=== PATIENT | female | born 1985 | race Asian ===

== ENCOUNTER 2018-12-22 22:20 | Emergency (ER) | payer MEDICAID ==
[~2018-12-22] VITALS: Ht 170.2 cm; Wt 61.2 kg
[~2018-12-22 22:20] MED LIST: DEPAKOTE250 MG PO; TRAZODONE HCL150 MG ORAL
--- NOTE | 2018-12-22 22:20 | NUR ---
ED Nurse Note: @ 1425 Pt was BIBA from home, Pt's friend called 911 due Pt C/o suicide idear which wanted to "stab herself". According to EMS report, pt was run out of Meds/Trazadone which she took regulary, and pt had Hx of OLY Kaminski. Pt is A/O X 4. [employer] at bedside. Pt's both hands were on cuff with 51:50 on hold. Hr 120 at this time, will continue to monitor.
--- NOTE | 2018-12-22 22:31 | Emergency Room Report ---
History of Present Illness General Chief Complaint: Behavioral Complaint Source: Patient, EMS Present Illness HPI [employer] were called by her roommate. Apparently the patient has a history of bipolar disorders not been taking her medication for several days. She apparently had suicidal ideation although the plan is not clear. [employer] started to transport the patient however she started to get agitated and [place] [facility] was called. Patient was transported to us. [employer] is planning on placing the patient on 5150. The patient denies any physical pain but says that she has psychiatric pain and does not want to live. She says she is homeless at this time. She claims she' s hearing voices and it's difficult for her to think clearly. She claims that the medications he supposed be taking her Depakote and trazodone. She also says that she is on metformin and Tragenta. She has been admitted to several hospitals for psychiatric evaluation and treatment. She denies headache, fever, nausea, vomiting, diarrhea, dysuria, joint pain. The patient Facial hair and there is slight inflammation in that area. The patient is genetically a male. Allergies: Coded Allergies: No Known Allergies (Unverified , 12/22/18) Patient History Past Medical History: see triage record Social History: Reports: smoking, alcohol use, drug use - [facility] Social History Narrative with roommate Last Menstrual Period: n/a Reviewed Nursing Documentation: PMH: Agreed; PSxH: Agreed Nursing Documentation-PM Past Medical History: No History, Except For Review of Systems All Other Systems: negative except mentioned in HPI Physical Exam Vital Signs Date Time Temp Pulse Resp B/P (MAP) Pulse Ox O2 Delivery O2 Flow Rate FiO2 12/22/18 22:13 98.2 120 18 127/82 100 Room Air Sp02 EP Interpretation: reviewed, normal General Appearance: well appearing, no apparent distress, other - GCS 14 Head: normocephalic Eyes: bilateral eye normal inspection, bilateral eye PERRL, bilateral eye EOMI ENT: moist mucus membranes Neck: supple Respiratory: lungs clear, normal breath sounds Cardiovascular #1: regular rate, rhythm Cardiovascular #2: 2+ radial (R) Gastrointestinal: normal inspection, normal bowel sounds, non tender, no mass, non-distended, scaphoid Genitourinary: other - penis Musculoskeletal: back normal, gait/station normal, normal range of motion Neurologic: alert, oriented x3, call center representative III-XII nml as tested, motor strength/tone normal, DTRs symmetric, sensory intact, cerebellar normal, speech normal Psychiatric: anxious, other - delusions and difficulty forumlating thoughts Suicide Risk Assessment: Suicidal Ideation: Yes Had intent to initiate attempt: Yes Skin: normal inspection, warm/dry, other - follicular rash mustach area Medical Decision Making Diagnostic Impression: Primary Impression: Suicidal ideation Additional Impressions: Psychosis Qualified Codes: F25.0 - Schizoaffective disorder, bipolar type Hyperglycemia Noncompliance ER Course Patient presents with alleged suicidal ideation and disorganized thoughts with a history of bipolar disorder and noncompliance. Differential includes exacerbation of bipolar disorder, noncompliance, electrolyte imbalance, other drug ingestions amongst other. The patient is a nonfocal neurologic exam at this time and CT of the head is not indicated. However the patient will be evaluated with EKG, and labs. The patient will be treated with Ativan, Benadryl and trazodone Labs with elevated glucose. Tox and alcohol negative. Treated for hyperglycemia. Improved with treatment. Patient had adverse reaction to Latuda in the past. Patient medically clear for psychiatric evaluation and treatment. More purposeful. C/O chronic R lower back pain. Requested Motrin (ordered). Declines nicotine patch. Signed out to Dr. Aldana. Laboratory Tests Test 12/22/18 22:55 White Blood Count 9.2 K/UL (4.8-10.8) Red Blood Count 5.19 M/UL (4.20-5.40) Hemoglobin 15.3 G/DL (12.0-16.0) Hematocrit 43.9 % (37.0-47.0) Mean Corpuscular Volume 85 FL (80-99) Mean Corpuscular Hemoglobin 29.6 PG (27.0-31.0) Mean Corpuscular Hemoglobin Concent 34.9 G/DL (32.0-36.0) Red Cell Distribution Width 11.0 % (11.6-14.8) L Platelet Count 257 K/UL (150-450) Mean Platelet Volume 7.2 FL (6.5-10.1) Neutrophils (%) (Auto) 74.2 % (45.0-75.0) Lymphocytes (%) (Auto) 16.3 % (20.0-45.0) L Monocytes (%) (Auto) 7.2 % (1.0-10.0) Eosinophils (%) (Auto) 1.0 % (0.0-3.0) Basophils (%) (Auto) 1.2 % (0.0-2.0) Urine Color Pale yellow Urine Appearance Clear Urine pH 6.5 (4.5-8.0) Urine Specific [place] 1.010 (1.005-1.035) Urine Protein Negative (NEGATIVE) Urine Glucose (UA) 4+ (NEGATIVE) H Urine Ketones Negative (NEGATIVE) Urine Blood Negative (NEGATIVE) Urine Nitrite Negative (NEGATIVE) Urine Bilirubin Negative (NEGATIVE) Urine Urobilinogen Normal MG/DL (0.0-1.0) Urine Leukocyte Esterase Negative (NEGATIVE) Sodium Level 134 MMOL/L (136-145) L Potassium Level 4.4 MMOL/L (3.5-5.1) Chloride Level 98 MMOL/L (98-107) Carbon Dioxide Level 25 MMOL/L (21-32) Anion Gap 11 mmol/L (5-15) Blood Urea Nitrogen 7 mg/dL (7-18) Creatinine 1.0 MG/DL (0.55-1.30) Estimate Glomerular Filtration Rate > 60 mL/min (>60) Glucose Level 317 MG/DL (74-106) H Calcium Level 9.4 MG/DL (8.5-10.1) Total Bilirubin 0.4 MG/DL (0.2-1.0) Aspartate Amino Transferase (AST) 17 U/L (15-37) Alanine Aminotransferase (ALT) 15 U/L (12-78) Alkaline Phosphatase 64 U/L (46-116) Total Creatine Kinase 105 U/L (26-308) Total Protein 7.6 G/DL (6.4-8.2) Albumin 3.8 G/DL (3.4-5.0) Globulin 3.8 g/dL Albumin/Globulin Ratio 1.0 (1.0-2.7) Thyroid Stimulating Hormone (TSH) 2.015 uiU/mL (0.358-3.740) Salicylates Level 0.3 ug/mL (2.8-20) L Urine Opiates Screen Negative (NEGATIVE) Acetaminophen Level < 2 MCG/ML (10-30) L Urine Barbiturates Screen Negative (NEGATIVE) Valproic Acid Level 4 MCG/ML (50-100) L Phencyclidine (PCP) Screen Negative (NEGATIVE) Urine Amphetamines Screen Negative (NEGATIVE) Urine Benzodiazepines Screen Negative (NEGATIVE) Urine Cocaine Screen Negative (NEGATIVE) Urine Marijuana (THC) Screen Negative (NEGATIVE) Serum Alcohol < 3 mg/dL EKG Diagnostic Results Rate: tachycardiac Rhythm: NSR ST Segments: no acute changes Rhythm Strip Diag. Results EP Interpretation: yes Rhythm: no PVC's, no ectopy, other - ST Last Vital Signs Date Time Temp Pulse Resp B/P (MAP) Pulse Ox O2 Delivery O2 Flow Rate FiO2 12/23/18 16:36 98.2 82 18 128/78 100 Room Air Status: improved Disposition: XFER TO PSYCH HOSP/UNIT Condition: Stable Gerard Pisano MD Dec 22, 2018 22:31
--- NOTE | 2018-12-22 22:35 | NUR ---
ED Nurse Note: [facility], cashes and cards kept with security Box.
[2018-12-22] MEDS ORDERED: LORazepam Inj 2mg/ml 1ml IV ONE (22:45)
[2018-12-22] MEDS ORDERED: DiphenhydrAMINE 50mg/ml Inj IVP ONE (22:45)
[2018-12-22] MEDS ORDERED: TraZODone 50mg tab ORAL ONE (22:45)
--- NOTE | 2018-12-22 23:03 | NUR ---
ED Nurse Note: Meds given as ordered.
[2018-12-22 23:07] LABS: APPEARANCE,URINE CLEAR; BASOPHILS % (AUTO) 1.2 % (0.0-2.0); BILIRUBIN, URINE NEGATIVE (NEGATIVE); COLOR,URINE PALE YELLOW; GLUCOSE, URINE (UA) 4+ (NEGATIVE); HEMATOCRIT 43.9 % (37.0-47.0); HEMOGLOBIN 15.3 G/DL (12.0-16.0); KETONES,URINE NEGATIVE (NEGATIVE); LEUKOCYTE ESTERASE ,URINE NEGATIVE (NEGATIVE); LYMPHOCYTES % (AUTO) 16.3 % (20.0-45.0); MEAN CORPUSCULAR VOLUME 85 FL (80-99); MONOCYTES % (AUTO) 7.2 % (1.0-10.0); NEUTROPHILS % (AUTO) 74.2 % (45.0-75.0); NITRITE,URINE NEGATIVE (NEGATIVE); PH,URINE 6.5 (4.5-8.0); PLATELET COUNT 257 K/UL (150-450); PROTEIN,URINE NEGATIVE (NEGATIVE); RED BLOOD COUNT 5.19 M/UL (4.20-5.40); UROBILINOGEN,URINE NORMAL MG/DL (0.0-1.0); WHITE BLOOD COUNT 9.2 K/UL (4.8-10.8)
[2018-12-22 23:14] VITALS: BP 123/81
--- NOTE | 2018-12-22 23:15 | NUR ---
Note dawna in EDM - 12/23/18 at 0030 by [facility] ED Nurse Note: Pt was BIBA from home, Pt's friend called 911 due Pt C/o suicide idear which wanted to "stab herself". According to EMS report, pt was run out of Meds/Trazadone which she took regulary, and pt had Hx of OLY Kaminski. Pt is A/O X 4. [employer] at bedside. Pt's both hands were on cuff with 51:50 on hold. Hr 120 at this time, will continue to monitor.
[2018-12-22 23:32] LABS: ALANINE AMINOTRANSFERASE 15 U/L (12-78); ALBUMIN 3.8 G/DL (3.4-5.0); ALKALINE PHOSPHATASE 64 U/L (46-116); ANION GAP 11 mmol/L (5-15); ASPARTATE AMINO TRANSFERASE 17 U/L (15-37); BILIRUBIN,TOTAL 0.4 MG/DL (0.2-1.0); CALCIUM 9.4 MG/DL (8.5-10.1); CARBON DIOXIDE 25 MMOL/L (21-32); CHLORIDE 98 MMOL/L (98-107); CREATINE KINASE 105 U/L (26-308); POTASSIUM 4.4 MMOL/L (3.5-5.1); SODIUM 134 MMOL/L (136-145)
[2018-12-22 23:38] LABS: BLOOD UREA NITROGEN 7 mg/dL (7-18)
[2018-12-23] VITALS (7 sets, daily range): BP systolic 118–128; BP diastolic 69–80
--- NOTE | 2018-12-23 00:30 | NUR ---
ED Nurse Note: Pt is lying quietly at this time, calling her sister : [phone]/ Lola.
[2018-12-23] MEDS ORDERED: Depakote 500mg tab ORAL ONE (01:00)
--- NOTE | 2018-12-23 04:15 | NUR ---
ED Nurse Note: Pt has a 1:1 sitter at bedside. Pt is awake, VSS. Pt was ambulated with steady gaite, will continue to monitor.
--- NOTE | 2018-12-23 05:35 | NUR ---
ED Nurse Note: Received a call from Den Brewer. No Beds today.
--- NOTE | 2018-12-23 07:10 | NUR ---
HAND-OFF: Report given to Shayan Jang/TERE. Pt is A/O X4. VSS. Sitter at bed side.
--- NOTE | 2018-12-23 07:35 | NUR ---
ED Nurse Note: Received patient in bed eating breakfast. pt aao x4 and in a pleasant mood at this moment. sitter at bedside. Vistal signs stable as documented. pt was asked "Do you still want to hurt yourself?" and replied "No. not now. I smoked weed and I was just being dramatic." no skin issue noted.
--- NOTE | 2018-12-23 07:43 | NUR ---
ED Nurse Note: pt's phone and portable patient partner were given to pt per her request. patient partner cord was not given due to risk for suicide. sitter at bedside. pt is walking in the room with steady gait.
[2018-12-23] MEDS ORDERED: metFORMIN 500mg tab ORAL SCH (09:00)
[2018-12-23] MEDS ORDERED: Depakote 500mg tab ORAL SCH (09:00)
--- NOTE | 2018-12-23 09:05 | NUR ---
ED Nurse Note: Pt has a visitor and keys from pt's belongings given to the visitor per pt's request.
--- NOTE | 2018-12-23 10:36 | NUR ---
ED Nurse Note: pt ambulated to bathroom and came back with steady gait assisted by sitter the whole time.
--- NOTE | 2018-12-23 13:06 | NUR ---
ED Nurse Note: pt requested to take [employer] debit card from security box to give it to her friend Julio so he can pay her rent. security box was opened and express debit card was handed in to Julio in front of 1 RN, 1 sitter, 1 security, Julio, and pt herself. Rest of items were checked in front of pt and placed in locker with her other stuff. pt agreed with it.
--- NOTE | 2018-12-23 15:57 | NUR ---
ED Nurse Note: Report given to Carmen at [facility].
--- NOTE | 2018-12-23 16:38 | NUR ---
ED Nurse Note: pt left department in stable condition.
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
== END 2018-12-23 16:36 ==
LOC: EDBD 22:20 → EMR 22:40
DX: R45.851 Suicidal ideations (principal); F29 Unspecified psychosis not due to a substance or known physiological condition; F31.9 Bipolar disorder, unspecified; R73.9 Hyperglycemia, unspecified; Z91.14 Patient's other noncompliance with medication regimen; F12.90 Cannabis use, unspecified, uncomplicated; F17.200 Nicotine dependence, unspecified, uncomplicated; Z72.89 Other problems related to lifestyle
CPT/HCPCS: 36415; 80053; 80164; 80307; 80329; 81003; 82550; 82962; 84443; 85025; 93005; 96361; 96374; 96375; 99285; J1200

== ENCOUNTER → 2019-03-31 | Emergency (ER) | payer MEDICAID, OTHER ==
[~2019-03-31] VITALS: Ht 167.6 cm; Wt 72.6 kg
[~2019-03-31] MED LIST changes: +Acetaminophen 500mg (ES) tab ORAL ONE; +Bacitracin Oint UD TOPIC ONE; +Insulin Human Regular 100units/ml 3ml IV ONE; +Insulin Human Regular 100units/ml 3ml SUBQ ONE; +Isovue-370 150ml vial INJ PRN; +Lidocaine 2% 20mg/ml/EPI 0.01mg/ml 20ml INJ ONE; +Silver Nitrate Stick TOPIC ONE; +Tetanus/Diptheria/Pertussis IM ONE; +UNOBMED; +metFORMIN 500mg tab ORAL SCH
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
--- NOTE | 2019-03-31 14:37 | Diagnostic Imaging Report ---
EXAM: XR Chest, 1 View CLINICAL HISTORY: SOB TECHNIQUE: Frontal view of the chest. COMPARISON: No relevant prior studies available. FINDINGS: Lungs: Accentuation of pulmonary markings. No consolidation. Pleural space: Unremarkable. No pneumothorax. Heart: Unremarkable. No cardiomegaly. Mediastinum: Unremarkable. Bones/joints: No acute fracture. IMPRESSION: Accentuation of pulmonary markings. No consolidation.
[2019-03-31 14:45] LABS: BASOPHILS % (AUTO) 1.6 % (0.0-2.0); EOSINOPHILS % (AUTO) 1.6 % (0.0-3.0); HEMATOCRIT 47.1 % (37.0-47.0); LYMPHOCYTES % (AUTO) 21.3 % (20.0-45.0); MEAN CORPUSCULAR VOLUME 87 FL (80-99); NEUTROPHILS % (AUTO) 70.5 % (45.0-75.0); PLATELET COUNT 215 K/UL (150-450); RED BLOOD COUNT 5.44 M/UL (4.20-5.40); RED CELL DISTRIBUTION WIDTH 11.1 % (11.6-14.8); WHITE BLOOD COUNT 6.3 K/UL (4.8-10.8)
[2019-03-31 14:51] LABS: APPEARANCE,URINE CLEAR; BILIRUBIN, URINE NEGATIVE (NEGATIVE); COLOR,URINE PALE YELLOW; GLUCOSE, URINE (UA) 4+ (NEGATIVE); KETONES,URINE 4+ (NEGATIVE); LEUKOCYTE ESTERASE ,URINE NEGATIVE (NEGATIVE); NITRITE,URINE NEGATIVE (NEGATIVE); PH,URINE 6 (4.5-8.0); PROTEIN,URINE NEGATIVE (NEGATIVE); UROBILINOGEN,URINE NORMAL MG/DL (0.0-1.0)
[2019-03-31 15:05] LABS: ALANINE AMINOTRANSFERASE 8 U/L (12-78); ALBUMIN 4.4 G/DL (3.4-5.0); ALBUMIN/GLOBULIN RATIO 1.4 (1.0-2.7); ALKALINE PHOSPHATASE 64 U/L (46-116); ANION GAP 14 mmol/L (5-15); ASPARTATE AMINO TRANSFERASE 11 U/L (15-37); BILIRUBIN,TOTAL 0.8 MG/DL (0.2-1.0); BLOOD UREA NITROGEN 21 mg/dL (7-18); CALCIUM 9.3 MG/DL (8.5-10.1); CARBON DIOXIDE 24 MMOL/L (21-32); CHLORIDE 93 MMOL/L (98-107); CREATININE 1.6 MG/DL (0.55-1.30); SODIUM 131 MMOL/L (136-145)
--- NOTE | 2019-03-31 15:42 | NUR ---
ED Nurse Note: pt down to ct
[2019-03-31 16:07] VITALS: BP 119/80
--- NOTE | 2019-03-31 16:27 | NUR ---
ED Nurse Note: pt labs and urine was sent ivf done . bs was 478 . Will medicate ermd aware.
--- NOTE | 2019-03-31 16:52 | NUR ---
ED Nurse Note: ENT Dr. Cox at bedside.
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
--- NOTE | 2019-03-31 18:03 | Diagnostic Imaging Report ---
EXAM: CT Chest With Intravenous Contrast CLINICAL HISTORY: PAIN TECHNIQUE: Axial computed tomography images of the chest with intravenous contrast. CTDI is 17.67 mGy and DLP is 579 mGy-cm. One or more of the following dose reduction techniques were used: automated exposure control, adjustment of the mA and/or kV according to patient size, use of iterative reconstruction technique. COMPARISON: No relevant prior studies available. FINDINGS: Lungs: Mild pulmonary blebs in the right apex. No consolidation Pleural space: Unremarkable. No pneumothorax. No effusion. Heart: No cardiomegaly. No pericardial effusion. Bones/joints: Mild chronic appearing wedging of T12. Soft tissues: Bilateral breast implants. Vasculature: Unremarkable. No thoracic aortic aneurysm. Lymph nodes: No enlarged lymph nodes. Kidneys and ureters: Right renal scarring. IMPRESSION: No consolidation.
--- NOTE | 2019-03-31 18:10 | Diagnostic Imaging Report ---
EXAM: CT Neck With Intravenous Contrast CLINICAL HISTORY: PAIN TECHNIQUE: Axial computed tomography images of the neck with intravenous contrast during the arterial phase of contrast enhancement. CTDI is 16.5+16.5+16. 5+49.51+52.35 mGy and DLP is 1779 mGy-cm. One or more of the following dose reduction techniques were used: automated exposure control, adjustment of the mA and/or kV according to patient size, use of iterative reconstruction technique. COMPARISON: No relevant prior studies available. FINDINGS: Vasculature: Limited by motion. Allowing for limitations, no central occlusion, high-grade stenosis or apparent dissection. Bones/joints: No acute fracture. Soft tissues: Unremarkable as visualized. No mass. Lung apices: Pulmonary blebs in the right lung apex. Other findings: Bovine arch. CAROTID STENOSIS REFERENCE USING NASCET CRITERIA: % ICA stenosis = (1 - narrowest ICA diameter/diameter of distal cervical ICA) x 100. Mild - <50% stenosis. Moderate - 50-69% stenosis. Severe - 70-94% stenosis. Near occlusion - 95-99% stenosis. Occluded - 100% stenosis. IMPRESSION: Limited by motion. Allowing for limitations, no central occlusion, high-grade stenosis or apparent dissection.
--- NOTE | 2019-03-31 19:11 | NUR ---
HAND-OFF: Report given to KWABENA CARRANZA.
[2019-03-31 19:35] VITALS: BP 110/68
--- NOTE | 2019-03-31 20:20 | NUR ---
Face sheet, MD dictation, clinicals and [id number] hold faxed to Lary at [facility] as requested.
[2019-03-31 21:06] VITALS: BP 106/60
--- NOTE | 2019-03-31 21:11 | NUR ---
ER Nurse Note: Pt calm, asleep, no signs of distress. Pt VSS, chest rise and fall noted. Face gauzed with kerlix; no active bleeding. Urinal at bedside; no difficulty voiding. SLIV to RT AC; patent. IV LT AC; infusing NS.All safety measures met; will continue to montior.
--- NOTE | 2019-03-31 21:32 | NUR ---
ER Nurse Note: Spoke with Imer at [facility] for pending placement. Imer said he will call back for approval.
--- NOTE | 2019-03-31 21:50 | NUR ---
ER Nurse Note: Spoke with Imer at [facility]; ruth Puente MD reviewed case and will accept pt after 12 hr if pt can BS is within range with PO and subq insulin. Pt alseep, calm, will continue to montior.
[2019-03-31 22:50] LABS: ANION GAP 8 mmol/L (5-15); BLOOD UREA NITROGEN 18 mg/dL (7-18); CALCIUM 8.3 MG/DL (8.5-10.1); CARBON DIOXIDE 25 MMOL/L (21-32); CHLORIDE 104 MMOL/L (98-107); CREATININE 0.9 MG/DL (0.55-1.30); POTASSIUM 3.7 MMOL/L (3.5-5.1); SODIUM 137 MMOL/L (136-145)
[2019-03-31 22:56] LABS: ALANINE AMINOTRANSFERASE 6 U/L (12-78); ALBUMIN 3.3 G/DL (3.4-5.0); ALBUMIN/GLOBULIN RATIO 1.3 (1.0-2.7); ALKALINE PHOSPHATASE 51 U/L (46-116); ASPARTATE AMINO TRANSFERASE 11 U/L (15-37); BILIRUBIN,TOTAL 0.4 MG/DL (0.2-1.0)
--- NOTE | 2019-03-31 23:49 | NUR ---
ER Nurse Note: Pt asleep, easily arousable, VSS, no signs of distress. Repeat labs drawn and received results. Glucose elevated; MD aware. SubQ insulin ordered; will recheck. Pending placement. All safety measures met; will cotninue to monitor.
[2019-03-31 23:51] VITALS: BP 116/72
--- NOTE | 2019-04-01 00:19 | NUR ---
ER Nurse Note: Blood sugar rechecked, 277. ERMD aware.
--- NOTE | 2019-04-01 01:19 | NUR ---
Spoke with Tank at [facility]-no adult beds at this time-call in the morning.
[2019-04-01 02:26] VITALS: BP 115/74
--- NOTE | 2019-04-01 02:32 | NUR ---
ER Nurse Note: Pt a&ox4, VSS, no signs of distress. Pt asleep. BS rechecked; blood surgar 203 and ERMD notified. Chest rise and fall noted. Pt denies pain, n/v, sob. Pt pending placement. All safety measures met; will continue to monitor.
--- NOTE | 2019-04-01 04:23 | NUR ---
ER Nurse Note: Pt cooperative, no signs of distress. Belongings taken, accounted, and placed in locker 2. Safety precautions for SI met. Spoke with Teetee at [facility], pending placement. Will continue to monitor.
[2019-04-01 04:51] VITALS: BP 112/78
--- NOTE | 2019-04-01 05:06 | NUR ---
ER Nurse Note: Blood glucose checked, 161. Blood sugar well controlled with PO and subQ insulin. Provided pt wtih extra blankets, all questions answers. All requests completed per pt orders. All safety measures met; will continue to gavi.
--- NOTE | 2019-04-01 07:31 | NUR ---
ER Nurse Note: Pt a&ox4, VSS, no signs of distress. Meal provided. All orders completed per ERMD orders. Pending placement. Endorsed care to oncoming shift for contiutiy of care.
[2019-04-01 07:32] VITALS: BP 122/85
--- NOTE | 2019-04-01 08:00 | NUR ---
ED Nurse Note: pt calm in rm with sitter present. amb steady gait to brp for bm. tolerates po intake well. pt with stitches intact under chin. dressing intact to left breast. no oozing noted. pt given updates for care and pending placement. linen change done. pt deesires to have no visitors
[2019-04-01 08:15] VITALS: BP 142/90
--- NOTE | 2019-04-01 10:11 | NUR ---
ED Nurse Note: pt amb with sitter to brp, states her feet are painful to ambulate. will notify md for meds prn
--- NOTE | 2019-04-01 10:57 | NUR ---
ED Nurse Note: pt requesting friend to come in and visit pt.
[2019-04-01 11:45] VITALS: BP 120/84
--- NOTE | 2019-04-01 11:49 | NUR ---
ED Nurse Note: pt and visitor made aware of plan to be transferred to [facility]. vss.
--- NOTE | 2019-04-01 11:57 | NUR ---
ED Nurse Note:lunch tray given to pt. friend remains at bs
--- NOTE | 2019-04-01 12:14 | NUR ---
ED Nurse Note: called facility for transfer, [facility] aware of pt arrival and accepts. report given to ambulance staff. pt remains cooperative and belongings pt states to give her keys to friend mike ulloa [phone] present with pt in ed.
== END ==
LOC: EDUNIT# 13:29 → EDBD 13:31 → EMR 14:12
DX: F60.9 Personality disorder, unspecified (principal); T75.4XXA Electrocution, initial encounter; R73.9 Hyperglycemia, unspecified; Z88.0 Allergy status to penicillin; F31.9 Bipolar disorder, unspecified; F20.9 Schizophrenia, unspecified; X58.XXXA Exposure to other specified factors, initial encounter; Y92.9 Unspecified place or not applicable; Z23 Encounter for immunization
CPT/HCPCS: 36415; 70498; 71045; 71260; 80053; 80307; 80329; 81003; 82009; 82962; 85025; 90471; 90715; 96361; 96374; 99285; J1815; Q9967